=== PATIENT | female | born 1945 | race Caucasian/White ===

== ENCOUNTER 2025-08-14 07:15 | Day surgery (SDC) | payer MEDICARE, OTHER ==
[~2025-08-14] VITALS: Ht 154.9 cm; Wt 79.9 kg
[~2025-08-14 07:15] MED LIST: LEVO112T2 PO; PHENYLEPHRINE 10% OPHTH SOL 5ML OS PRN; PREDOPD OU
[2025-08-14] MEDS: LIDOCAINE 3.5% 1 ML OPHTH TOPICAL GEL OU ONE (09:00)
[2025-08-14] MEDS: OFLOXACIN 0.3 % (OCUFLOX) OPTH SOL 5ML OS ONE (09:00)
[2025-08-14] MEDS: LIDOCAINE 1% SDV 5 ML VIAL As Ordered ONE (09:37)
[2025-08-14] MEDS: BSS IRRIG/VANCO(10MG)/TOBRA(5MG)/EPINEPH(1:1000-0.5CC)500ML BAG-ORONLY As Ordered ONE (09:37)
[2025-08-14] MEDS: CEFUROXIME 1 MG/0.1 ML INTRACAMERAL INJ As Ordered ONE (09:37)
[2025-08-14 09:47] VITALS: BP 149/73; TEMP 97.5; O2SAT 97
[2025-08-14] MEDS: CYCLOPENTOLATE 1% OPHTH SOLN 2 ML BTL OS SCH (09:51)
[2025-08-14] MEDS: TROPICAMIDE 1% OPHTH SOLN 15ML OS SCH (09:51)
[2025-08-14] MEDS: PHENYLEPHRINE 2.5% OPHTH SOL 2ML OS SCH (09:51)
== END 2025-08-14 10:05 | disposition home or self-care (01) ==
LOC: M SDC 07:15
PROVIDERS: ATTEND Ophthalmology
DX: H25.12 Age-related nuclear cataract, left eye (principal); E03.9 Hypothyroidism, unspecified; E78.00 Pure hypercholesterolemia, unspecified; G62.9 Polyneuropathy, unspecified; Z92.21 Personal history of antineoplastic chemotherapy; Z85.89 Personal history of malignant neoplasm of other organs and systems; Z79.890 Hormone replacement therapy; Z92.3 Personal history of irradiation; Z90.710 Acquired absence of both cervix and uterus; Z88.0 Allergy status to penicillin; Z88.8 Allergy status to other drugs, medicaments and biological substances
CPT/HCPCS: 66984; J0697; J3010; V2632